=== PATIENT | female | born 1985 | race Caucasian/White ===

== ENCOUNTER → 2024-01-05 06:33 | Day surgery (SDC) | payer BC, SELFPAY | LOC: GI 06:33 | PROVIDERS: ATTENDING PHYSICIAN Internal Medicine | DX: K20.0 Eosinophilic esophagitis (principal); K22.89 Other specified disease of esophagus; K44.9 Diaphragmatic hernia without obstruction or gangrene; R13.10 Dysphagia, unspecified | CPT/HCPCS: 43239; 88305 ==

== ENCOUNTER 2025-04-11 06:37 | Day surgery (SDC) | payer BC, SELFPAY | END 2025-04-11 11:23 | disposition home or self-care (01) | LOC: GI 06:37 | PROVIDERS: ATTENDING PHYSICIAN Internal Medicine | DX: D21.9 Benign neoplasm of connective and other soft tissue, unspecified (principal); K22.89 Other specified disease of esophagus | CPT/HCPCS: 43239; 88305; 88341; 88342 ==

== ENCOUNTER 2025-08-13 06:08 | Day surgery (SDC) | payer BC, SELFPAY ==
[2025-08-13 07:43] VITALS: BMI 32.5
[2025-08-13 07:44] VITALS: BP 111/73
[2025-08-13 09:09] VITALS: BP 114/81
[2025-08-13 09:15] VITALS: BP 117/80
[2025-08-13 09:30] VITALS: BP 112/77
== END 2025-08-13 09:42 | disposition home or self-care (01) ==
LOC: GI 06:08
PROVIDERS: ATTENDING PHYSICIAN Internal Medicine Gastroenterology
DX: K86.9 Disease of pancreas, unspecified (principal)
CPT/HCPCS: 43259